=== PATIENT | female | born 1970 | race African-American/Black ===

== ENCOUNTER → 2016-03-27 | Outpatient (CLI) | payer OTHER ==
[~2016-03-27] MED LIST: ALBU1.257 NEB; DIPH-437 PO; FRS/40 PO; NRV/5 PO; PHEN37.585 PO; VTMD PO
[2016-03-27 18:04] LABS: BENZODIAZEPINE, URINE NEG (NEG); COCAINE,URINE NEG (NEG); PHENCYCLIDINE, URINE NEG (NEG)
== END | disposition home or self-care (01) ==
LOC: C.LAB1850 17:05
PROVIDERS: ATTEND Psychiatry & Neurology Clinical Neurophysiology
DX: Z79.891 Long term (current) use of opiate analgesic (principal)